=== PATIENT | female | born 2000 | race African-American/Black ===

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

== ENCOUNTER 2020-11-17 16:42 | Emergency (ER) | payer MEDICAID, OTHER | END 2020-11-17 19:00 | disposition home or self-care (01) | LOC: ERS 16:42 | DX: M25.562 Pain in left knee (principal); M25.522 Pain in left elbow; V89.2XXA Person injured in unspecified motor-vehicle accident, traffic, initial encounter | CPT/HCPCS: 99283 ==

== ENCOUNTER 2021-12-05 17:19 | Emergency (ER) | payer OTHER | END 2021-12-05 19:11 | disposition home or self-care (01) | LOC: ERS 17:19 | DX: Z02.79 Encounter for issue of other medical certificate (principal); M25.512 Pain in left shoulder | CPT/HCPCS: 99283 ==

== ENCOUNTER 2022-03-04 18:49 | Emergency (ER) | payer OTHER | END 2022-03-04 22:04 | disposition home or self-care (01) | LOC: ERS 18:49 | DX: B34.9 Viral infection, unspecified (principal) | CPT/HCPCS: 71045; 87804 ==

== ENCOUNTER 2022-05-03 14:47 | Emergency (ER) | payer MEDICAID, OTHER | END 2022-05-03 16:03 | disposition home or self-care (01) | LOC: ERS 14:47 | DX: K59.00 Constipation, unspecified (principal) | CPT/HCPCS: 99283 ==